=== PATIENT | female | born 1990 | race African-American/Black ===

== ENCOUNTER 2017-09-01 14:36 | Emergency (ER) | payer OTHER ==
[~2017-09-01] VITALS: Ht 154.9 cm; Wt 94.8 kg
[~2017-09-01 14:36] MED LIST: ACCUNEB SO1.25 MG/1 INH; CYCLOBENZAPRINE5 MG PO; IBUPROFEN 600600 M1 PO
[2017-09-01] MEDS ORDERED: FLOVENT HFA 4444 MCG INH (15:09)
[2017-09-01] MEDS ORDERED: TRAMADOL 50 MG50 MG PO ×2 (15:52→16:05)
[2017-09-01] MEDS ORDERED: MOBIC15 MG PO ×2 (15:52→16:05)
[2018-02-24] MEDS ORDERED: NORCO 5-325 TA1 EACH PO (13:47)
[2018-02-24] MEDS ORDERED: AMOXICILLIN500 M1 PO (13:47)
[2018-03-02] MEDS ORDERED: HYDROCODONE-AP1 EAC6 PO (14:09)
== END 2017-09-01 16:22 | disposition home or self-care (01) ==
LOC: ER 14:36
DX: S93.491A Sprain of other ligament of right ankle, initial encounter (principal); J45.909 Unspecified asthma, uncomplicated; W01.0XXA Fall on same level from slipping, tripping and stumbling without subsequent striking against object, initial encounter; Y93.89 Activity, other specified; Y92.89 Other specified places as the place of occurrence of the external cause; Y99.0 Civilian activity done for income or pay

== ENCOUNTER 2018-03-28 11:03 | Emergency (ER) | payer OTHER ==
[~2018-03-28] VITALS: Ht 154.9 cm; Wt 75.8 kg
[~2018-03-28 11:03] MED LIST changes: +AMOXICILLIN500 M1 PO; +FLOVENT HFA 4444 MCG INH; +HYDROCODONE-AP1 EAC6 PO; +MOBIC15 MG PO; +NORCO 5-325 TA1 EACH PO; +TRAMADOL 50 MG50 MG PO
[2018-03-28 11:10] VITALS: BP 107/63
[2018-03-28] MEDS ORDERED: ULTRAM 50MG TAB50 MG PO (11:17)
[2018-03-28] MEDS ORDERED: VALACYCLOVIR1000 MG PO (11:17)
== END 2018-03-28 11:38 | disposition home or self-care (01) ==
LOC: ER 11:03
DX: B02.9 Zoster without complications (principal); J45.909 Unspecified asthma, uncomplicated; Z88.6 Allergy status to analgesic agent

== ENCOUNTER 2020-04-11 12:08 | Emergency (ER) | payer OTHER ==
[~2020-04-11] VITALS: Ht 162.6 cm; Wt 62.1 kg
[~2020-04-11 12:08] MED LIST changes: +ULTRAM 50MG TAB50 MG PO; +VALACYCLOVIR1000 MG PO
[2020-04-11 14:43] VITALS: BP 115/79
== END 2020-04-11 14:43 | disposition home or self-care (01) ==
LOC: ER 12:08
DX: S64.91XA Injury of unspecified nerve at wrist and hand level of right arm, initial encounter (principal); J45.909 Unspecified asthma, uncomplicated; Z79.2 Long term (current) use of antibiotics; Z79.899 Other long term (current) drug therapy; Z88.8 Allergy status to other drugs, medicaments and biological substances; X58.XXXA Exposure to other specified factors, initial encounter; Y93.89 Activity, other specified; Y92.89 Other specified places as the place of occurrence of the external cause; Y99.8 Other external cause status

== ENCOUNTER 2021-03-27 09:20 | Emergency (ER) | payer OTHER ==
[~2021-03-27] VITALS: Ht 154.9 cm; Wt 62.1 kg
[2021-03-27 09:20] VITALS: BP 117/60
== END 2021-03-27 10:56 | disposition home or self-care (01) ==
LOC: ER 09:20
DX: U07.1 COVID-19 (principal); J45.909 Unspecified asthma, uncomplicated; Z79.899 Other long term (current) drug therapy; Z91.09 Other allergy status, other than to drugs and biological substances

== ENCOUNTER 2021-06-10 02:40 | Emergency (ER) | payer OTHER ==
[~2021-06-10] VITALS: Ht 154.9 cm; Wt 63.5 kg
[2021-06-10] MEDS ORDERED: NORCO5 PO (03:42)
[2021-06-10 05:15] VITALS: BP 116/65
== END 2021-06-10 05:21 | disposition home or self-care (01) ==
LOC: ER 02:40
DX: M25.461 Effusion, right knee (principal); M25.561 Pain in right knee; J45.909 Unspecified asthma, uncomplicated; Z98.51 Tubal ligation status; Z79.899 Other long term (current) drug therapy; Z88.6 Allergy status to analgesic agent